=== PATIENT | female | born 1930 | race Caucasian/White ===

== ENCOUNTER 2016-11-04 12:20 | Emergency (ER) | payer OTHER ==
[~2016-11-04] VITALS: Ht 160 cm; Wt 90.0 kg
[~2016-11-04 12:20] MED LIST: ATEN-102 PO; ATOR20TA PO; CARD120C4 PO; COUM2TAB PO; COUM3TAB PO; DOCU100T9 PO
[2016-11-04 12:35] VITALS: BP 198/86; PULSE 87; RESP 20; TEMP 97.9; O2SAT 99
--- NOTE | 2016-11-04 14:46 | RADRPT ---
EXAM DATE/TIME: 11/04/2016 14:49 [facility] COMPARISON: No previous studies available for comparison. INDICATIONS : Fall. Left elbow pain. MEDICAL HISTORY : None. SURGICAL HISTORY : None. ENCOUNTER: Initial ACUITY: 1 day PAIN SCORE: 8/10 LOCATION: Left posterior elbow FINDINGS: Multiple view examination of the left elbow demonstrates no soft tissue swelling, joint effusion, or fracture. The osseous structures are in normal alignment. Bony mineralization is normal. CONCLUSION: Unremarkable examination of the left elbow. Multiple bony excrescences from both the lateral and med ial epicondylar regions a sign of chronic tendinopathy. Charly Gonzalez MD on November 04, 2016 at 14:43 Board Certified Radiologist. This report was verified electronically.
[2016-11-04 15:00] VITALS: BP 172/88; PULSE 80; RESP 20; O2SAT 98
[2016-11-04] MEDS ORDERED: ACETAMINOPHEN 325 MG TAB PO ONE (15:00)
--- NOTE | 2016-11-04 15:20 | RADRPT ---
EXAM DATE/TIME: 11/04/2016 15:06 [facility] COMPARISON: No previous studies available for comparison. INDICATIONS : Fall off seated walker with head trauma. RADIATION DOSE: 33.44 CTDIvol (mGy) MEDICAL HISTORY : Cardiovascular disease. Cerebrovascular disease. Hypertension. SURGICAL HISTORY : Appendectomy. Hysterectomy. ENCOUNTER: Initial ACUITY: 1 day PAIN SCALE: 5/10 LOCATION: cranial TECHNIQUE: Multiple contiguous axial images were obtained of the head. Using automated exposure control and adj ustment of the mA and/or kV according to patient size, radiation dose was kept as low as reasonably a chievable to obtain optimal diagnostic quality images. FINDINGS: There is marked central and cortical atrophy with dilatation of ventricular and sulcal spaces. There is no parenchymal hemorrhage, acute infarction or mass lesion identified. There are no extra-axial fluid collections appreciated. The posterior fossa is unremarkable with midline fourth ventricle. T he portion of the orbits and paranasal sinuses visualized are unremarkable. CONCLUSION: Cerebral atrophy. No acute intracranial abnormality. Varun Oro MD on November 04, 2016 at 15:18 Board Certified Radiologist. This report was verified electronically.
--- NOTE | 2016-11-04 15:32 | RADRPT ---
EXAM DATE/TIME: 11/04/2016 15:06 [facility] COMPARISON: No previous studies available for comparison. INDICATIONS : Fall off seated walker with head trauma. RADIATION DOSE: 17.80 CTDIvol (mGy) MEDICAL HISTORY : Cardiovascular disease. Cerebrovascular disease. Hypertension. SURGICAL HISTORY : None. ENCOUNTER: Initial ACUITY: 1 day PAIN SCALE: 6/10 LOCATION: neck TECHNIQUE: Volumetric scanning of the cervical spine was performed. Multiplanar reconstructions in the sagittal, coronal and oblique axial planes were performed. Using automated exposure control and adjustment o f the mA and/or kV according to patient size, radiation dose was kept as low as reasonably achievable to obtain optimal diagnostic quality images. FINDINGS: Sagittal and coronal reformats demonstrate 7 cervical type vertebral bodies. The alignment is adequat e. There are degenerated discs throughout the cervical spine. There are degenerative changes in the a tlantodens joint. No acute cervical spine fracture is seen. C2/3: There is moderate facet arthritis on the right. There is mild facet arthritis on the left. The thecal space and neural foramina are adequate. C3/4: There is advanced facet arthritis on the left. There is moderate bony foraminal narrowing on the left . The residual thecal space is adequate. The foramina on the right is adequate. C4-5: There is a degenerated disc with diffuse osteophytic ridging from the vertebral endplates. This resul ts in moderate narrowing of the thecal sac. There is moderate facet arthritis bilaterally. There is o steophytic spur which projects into the lateral recess on the right. There is mild bony foraminal alvin rowing bilaterally. C5-6: There is a degenerated disc. There is mild osteophytic ridging from the vertebral endplates. This eff aces the ventral thecal sac. The foramina appear adequate. There is mild facet arthritis bilaterally. C6-7: The thecal space and foramina are adequate. No significant abnormality identified. C7-T1: There is moderate facet arthritis bilaterally. CONCLUSION: 1. No acute fracture identified. 2. Degenerative changes throughout the cervical spine. The most significant abnormality is a large os teophyte projecting off the posterior endplates across the C4/5 disc level. This effaces the ventral thecal sac and abuts the ventral aspect of the cord. Eren Britt MD on November 04, 2016 at 15:28 Board Certified Radiologist. This report was verified electronically.
--- NOTE | 2016-11-04 16:11 | PD ---
HPI Chief Complaint: Fall Time Seen by Provider: 16:04 Travel History International Travel<30 days: No Contact w/Intl Traveler<30days: No Traveled to known affect area: No History of Present Illness HPI 86-year-old female that presents to the ED for evaluation of trip and fall today. Per patient her was pushing her on a wheeled walker as she has difficulty ambulating secondary to previous surgeries to his legs and apparently when they were going up the incline he lost his balance and patient fell backwards into her head. She did not pass out but she does take blood thinners. She states having some pain on the back of the head as well as the left elbow. She does have an abrasion the left elbow. Patient takes Coumadin secondary to atrial fibrillation. She denies any back or neck pain. Per patient most the pains in the back of the head. She did not lose consciousness. No blurry vision or double vision. Nothing makes the pain better or worse. Per patient the discomfort 7 out of 10. Per patient she feels achy on her legs but that's been chronic secondary to swelling from previous knee surgery. She hasn't allergy to Haldol and morphine. She states that she is up-to-date with her vaccinations. No other medical problems reported today. PFSH Past Medical History Hx Anticoagulant Therapy: Yes Arthritis: Yes (RA) Asthma: No Atrial Fibrillation: Yes Autoimmune Disease: Yes (RA) Cancer: No Cardiovascular Problems: Yes (AFIB) High Cholesterol: Yes Chest Pain: No COPD: No Diabetes: No Diminished Hearing: Yes Endocrine: No GERD: No Genitourinary: No Headaches: Yes (RARELY) Hiatal Hernia: No Hypertension: Yes Kidney Stones: No Musculoskeletal: Yes (uses a walker ) Psychiatric: No Reproductive: No Respiratory: No Sleep Apnea: No Thyroid Disease: No Ulcer: No Tetanus Vaccination: < 5 Years : 6 Para: 6 Miscarriage: 1 Tubal Ligation: Yes Past Surgical History Appendectomy: Yes Hysterectomy: Yes Tonsillectomy: Yes Other Surgery: Yes (HEMORRHOIDECTOMY / POLYP REMOVAL) Social History Alcohol Use: Yes (WEEKLY WITH DINNER WINE) Tobacco Use: No Substance Use: No Allergies-Medications (Allergen,Severity, Reaction): Coded Allergies: Haldol (Verified Allergy, Intermediate, 01/29/16) family said she had an adverse reaction to haldol Morphine (Verified Adverse Reaction, Mild, 01/29/16) Reported Meds & Prescriptions Reported Meds & Active Scripts Active Reported Coumadin 3 mg (Warfarin Sodium) Warfarin Sodium 3 mg Tab 3 Mg PO MOWEFR@16 Coumadin 2 mg (Warfarin Sodium) Warfarin Sodium 2 mg Tab 2 Mg PO SUTUTHSA@16 Docusate Sodium 100 Mg Cap 100 Mg PO BID PRN Atorvastatin 20 mg tab (Atorvastatin Calcium) 20 Mg Tab 20 Mg PO HS Cardizem CD 120 mg (Diltiazem CD 120 mg) 120MG/24 Cap 120 Mg PO DAILY Atenolol 50 Mg Tab 50 Mg PO DAILY Review of Systems General / Constitutional: No: Fever, Chills, Weight Gain, Weight Loss, Other Eyes: No: Diploplia, Blurred Vision, Photophobia, Drainage, Redness, Foreign Body Sensation, Pain, Tearing, Blind Spots, Visual changes, Blindness, Other HENT: Positive: Headaches, No: Vertigo, Lightheadedness, Sore Throat, Rhinitis , Rhinorrhea, Congestion, Nosebleed, Neck Stiffness, Neck Pain, Masses, Gingival Bleeding, Dental Difficulties, Ear Discharge, Earache, Other Cardiovascular: No: Chest Pain or Discomfort, Palpitations, Irregular Rhythm, Tachycardia, Diaphoresis, Syncope, Dyspnea on exertion, Varicosities, Edema, Cyanosis, Varicosities, Phlebitis, Claudication, Other Respiratory: No: Cough, Shortness of Breath, Wheezing, Sneezing, Orthopnea, Hemoptysis, Stridor, Night Sweats, Pleuritic Pain, Other Gastrointestinal: No: Nausea, Vomiting, Diarrhea, Abdominal Pain, Hematemesis, Hematochezia, Constipation, Changes in Bowel Habits, Indigestion, Dysphagia, Loss of Appetite, Other Genitourinary: No: Urgency, Frequency, Dysuria, Nocturia, Hematuria, Decreased Urinary Output, Oliguria, Hesitancy, Dribbling, Incontinence, Pelvic Pain, Flank Pain, Dyspareunia, Discharge, Dysmenorrhea, Menorrhagia, Metorrhagia, Vaginal Bleeding, Other Musculoskeletal: Positive: Pain, No: Myalgias, Arthralgias, Limited ROM, Weakness, Cramping, Edema, Atrophy, Other Skin: Positive Lesions, No Rash, No Itching, No Dryness, No Lumps, No Hives, No Change in Pigmentation, No Change in nails, No Alopecia, No Breast Lumps, No Breast Tenderness, No Breast Swelling, No Other Neurologic: No: Weakness, Dizziness, Syncope, Focal Abnormalities, Coordination Problem, Tremor, Ataxia, Headache, Change in Mentation, Slurred Speech, Paresthesia, Incontinence, Seizures, Sensory Disturbance, Other Psychiatric: No: Anxiety, Depression, Suicidal Ideations, Disorder of Thought, Mood Disorder, Substance Abuse, Homicidal Ideation, Other Endocrine: No: Heat Intolerance, Cold Intolerance, Polyuria, Polydipsia, Other Hematologic/Lymphatic: No: Easy Bruising, Lymph Node Enlargement, Other Physical Exam Narrative GENERAL: SKIN: Warm and dry. HEAD: Atraumatic. Normocephalic. EYES: Pupils equal and round 4 mm reactive to light and accommodation. No scleral icterus. No injection or drainage. ENT: No nasal bleeding or discharge. Mucous membranes pink and moist. Tongue is midline. No uvula deviation. NECK: Trachea midline. No JVD. CARDIOVASCULAR: Regular rate and rhythm. No murmurs, S3, S4. RESPIRATORY: No accessory muscle use. Clear to auscultation. Breath sounds equal bilaterally. GASTROINTESTINAL: Abdomen soft, non-tender, nondistended. Hepatic and splenic margins not palpable. MUSCULOSKELETAL: Extremities without clubbing, cyanosis, or edema. No obvious deformities. Full range of motion of the upper and lower extremities bilaterally. No lumbar, thoracic, cervical spine tenderness to palpation. Patient was seen with cervical collar in place. Patient does have full range of motion of the left elbow with minimal discomfort. Patient has abrasions to the posterior aspect of the elbow. NEUROLOGICAL: Awake and alert. No obvious cranial nerve deficits. Motor grossly within normal limits. Five out of 5 muscle strength in the arms and legs. Normal speech. PSYCHIATRIC: Appropriate mood and affect; insight and judgment normal. Data Data Last Documented VS Vital Signs Date Time Temp Pulse Resp B/P Pulse Ox O2 Delivery O2 Flow Rate FiO2 11/04/16 12:35 97.9 87 20 198/[address] Brain W/O Iv Contrast(Rout) (11/04/16 13:57) Ct Cerv Spine W/O Contrast (11/04/16 13:57) Elbow, Complete (4 Vws) (11/04/16 13:57) Ice/Cold Pack (11/04/16 13:57) Acetaminophen (Tylenol) (11/04/16 15:00) MDM Medical Decision Making Medical Screen Exam Complete: Yes Emergency Medical Condition: Yes Medical Record Reviewed: Yes Interpretation(s) Last Impressions Head CT 11/04/161356 Signed Impressions: Service Date/Time: November 15:06 - CONCLUSION: Cerebral atrophy. No acute intracranial abnormality. Varun Oro MD Elbow X-Ray 11/04/161356 Signed Impressions: Service Date/Time: November 14:49 - CONCLUSION: Unremarkable examination of the left elbow. Multiple bony excrescences from both the lateral and medial epicondylar regions a sign of chronic tendinopathy. Charly Gonzalez MD Cervical Spine CT 11/04/161356 Signed Impressions: Service Date/Time: November 15:06 - CONCLUSION: 1. No acute fracture identified. 2. Degenerative changes throughout the cervical spine. The most significant abnormality is a large osteophyte projecting off the posterior endplates across the C4/5 disc level. This effaces the ventral thecal sac and abuts the ventral aspect of the cord. Eren Britt MD Differential Diagnosis Fall versus head injury versus bleed versus fracture versus abrasion Narrative Course 86-year-old female that presents to the ED for evaluation of fall. Patient was properly examined and was found to have signs and symptoms consistent with fall. Concern for head bleed as patient does take blood thinners although she is neurovascular intact at this time. CT of the head and neck were done. CT of the head and neck were negative. Cervical collar was removed by me. X-ray of the elbow was done to rule out bony injury although less likely. X-ray was negative for this other than for some chronic changes. Patient was reassured. Recommendation is for Tylenol for pain. Follow up closely with PCP. Ice or warm compresses to areas of pain. See ED for any worsening symptoms. Patient agrees with plan. Diagnosis Primary Impression: Head injury, acute Qualified Code: S09.90XA - Head injury, acute, initial encounter Additional Impressions: Abrasion Contusion Qualified Code: S00.83XA - Contusion of other part of head, initial encounter Patient Instructions: General Instructions Additional Instructions: Wash wounds with soap and water. Antibiotic ointment. Ice to the area of pain. Follow with PCP. See ED for worsening symptoms. Med/Other Pt SpecificInfo: No Change to Meds Disposition: 01 DISCHARGE HOME Condition: Stable Bereket Holden Nov 04, 2016 16:11
[2016-11-04 16:25] VITALS: BP 169/87
== END 2016-11-04 17:19 | disposition home or self-care (01) ==
LOC: NEDAMB 12:20
DX: S09.90XA Unspecified injury of head, initial encounter (principal); S00.83XA Contusion of other part of head, initial encounter; S50.312A Abrasion of left elbow, initial encounter; W03.XXXA Other fall on same level due to collision with another person, initial encounter
CPT/HCPCS: 70450; 72125; 73080

== ENCOUNTER 2017-05-28 19:51 | Observation (INO) | payer OTHER ==
[~2017-05-28] VITALS: Ht 165.1 cm; Wt 88.0 kg
[2017-05-28 19:59] VITALS: BP 212/98; PULSE 120; RESP 18; TEMP 97.9; O2SAT 95
[2017-05-28] MEDS ORDERED: ATOR20TA15 PO (20:09)
[2017-05-28] MEDS ORDERED: DILT120T PO (20:09)
[2017-05-28] MEDS ORDERED: COUM2.5T PO (20:09)
[2017-05-28] MEDS ORDERED: COUM2TAB PO (20:09)
[2017-05-28] MEDS ORDERED: COLA100C (20:09)
[2017-05-28] MEDS ORDERED: ATEN50TA PO (20:09)
[2017-05-28] MEDS ORDERED: SODIUM CHLORIDE 0.9% FLUSH 10 ML FLUSH IVF PRN (20:30)
[2017-05-28] MEDS ORDERED: FUROSEMIDE 40 MG/4 ML VIAL IVP ONE (20:30)
--- NOTE | 2017-05-28 21:06 | RADRPT ---
EXAM DATE/TIME: 05/28/2017 20:32 [facility] COMPARISON: CHEST PA & LAT, November 29, 2015, 13:56. INDICATIONS : Short of breath. MEDICAL HISTORY : Rheumatoid arthritis. Hypertension Congestive heart failure. Atrial fibrilation. SURGICAL HISTORY : None. ENCOUNTER: Initial ACUITY: 1 day PAIN SCORE: 6/10 LOCATION: Left chest FINDINGS: A single view of the chest demonstrates the lungs to be symmetrically aerated without evidence of mas s, infiltrate or effusion. The cardiomediastinal contours are unremarkable. There are atherosclerot ic calcifications in the aorta. There Osseous structures are intact. CONCLUSION: No acute disease. Jordan Jarrett MD on May 28, 2017 at 21:03 Board Certified Radiologist. This report was verified electronically.
--- NOTE | 2017-05-28 21:17 | PD ---
HPI Chief Complaint: Chest Pain Time Seen by Provider: 20:06 Travel History International Travel<30 days: No Contact w/Intl Traveler<30days: No Traveled to known affect area: No History of Present Illness HPI This is an 86 year-old woman who presents to the emergency department complaining of chest pain and labored breathing starting since this morning. She's had more chest pain recently. She is a history of A. fib, she is on warfarin apparently. She is not sure of any of her medications. She states she is on a water pill but there is no record of it. She thinks she may have heart failure but it is not in her previous records either. She sees Dr. Lamine Bellamy, and follows with Dr. Goodwin. History Past Medical History Narrative Medical According to records: Arthritis A. fib, on warfarin Hypertension Dyslipidemia Patient reports possible history of CHF : 6 Para: 6 Social History Alcohol Use: Yes (WEEKLY WITH DINNER WINE) Tobacco Use: No Allergies-Medications (Allergen,Severity, Reaction): Coded Allergies: haloperidol (Unverified Allergy, Intermediate, 04/19/17) family said she had an adverse reaction to haldol morphine (Unverified Adverse Reaction, Mild, 04/19/17) Reported Meds & Prescriptions Reported Meds & Active Scripts Active Reported Coumadin (Warfarin) 2 Mg Tab 2 Mg PO WEEKLY Coumadin (Warfarin) 2.5 Mg Tab 2.5 Mg PO WEEKLY Colace (Docusate Sodium) 100 Mg Capsule Atorvastatin (Atorvastatin Calcium) 20 Mg Tab 20 Mg PO HS Atenolol 50 Mg Tab 50 Mg PO DAILY Diltiazem (Diltiazem HCl) 120 Mg Tab 120 Mg PO DAILY Review of Systems Except as stated in HPI: all other systems reviewed are Neg Physical Exam Narrative GENERAL: Anxious 86 year-old woman, no acute distress. SKIN: Focused skin assessment warm/dry. HEAD: Atraumatic. Normocephalic. EYES: Pupils equal and round. No scleral icterus. No injection or drainage. ENT: No nasal bleeding or discharge. Mucous membranes pink and moist. NECK: Trachea midline. No JVD. CARDIOVASCULAR: Regular rate and rhythm. No murmur appreciated. RESPIRATORY: Nonlabored. Rales in both bases with coarse rhonchorous breath sounds. Clear in the apices. GASTROINTESTINAL: Abdomen soft, non-tender, nondistended. Hepatic and splenic margins not palpable. MUSCULOSKELETAL: No obvious deformities. Minimal edema. NEUROLOGICAL: Awake and alert. No obvious cranial nerve deficits. Motor grossly within normal limits. Normal speech. PSYCHIATRIC: Slightly anxious. Data Data Last Documented VS Vital Signs Date Time Temp Pulse Resp B/P (MAP) Pulse Ox O2 Delivery O2 Flow Rate FiO2 05/28/17 20:03 107 05/28/17 19:59 97.9 18 212/98 (136) 95 Orders Orders Complete Blood Count With Diff (05/28/17 20:18) Comprehensive Metabolic Panel (05/28/17 20:18) B-Type Natriuretic Peptide (05/28/17 20:18) Act Partial Throm Time (Ptt) (05/28/17 20:18) Prothrombin Time / Inr (Pt) (05/28/17 20:18) Magnesium (Mg) (05/28/17 20:18) Troponin I (05/28/17 20:18) Iv Access Insert/Monitor (05/28/17 20:18) Electrocardiogram (05/28/17 20:18) Ecg Monitoring (05/28/17 20:18) Oximetry (05/28/17 20:18) Oxygen Administration (05/28/17 20:18) Chest, Single Ap (05/28/17 20:18) Sodium Chloride 0.9% Flush (Ns Flush) (05/28/17 20:30) Furosemide Inj (Lasix Inj) (05/28/17 20:30) Diltiazem Inj (Cardizem Inj) (05/28/17 21:30) Labs Laboratory Tests Test 05/28/17 20:30 White Blood Count 5.7 TH/MM3 Red Blood Count 4.10 MIL/MM3 Hemoglobin 11.2 GM/DL Hematocrit 34.8 % Mean Corpuscular Volume 84.9 FL Mean Corpuscular Hemoglobin 27.3 PG Mean Corpuscular Hemoglobin Concent 32.2 % Red Cell Distribution Width 16.7 % Platelet Count 182 TH/MM3 Mean Platelet Volume 8.6 FL Neutrophils (%) (Auto) 73.0 % Lymphocytes (%) (Auto) 12.0 % Monocytes (%) (Auto) 8.5 % Eosinophils (%) (Auto) 6.0 % Basophils (%) (Auto) 0.5 % Neutrophils # (Auto) 4.2 TH/MM3 Lymphocytes # (Auto) 0.7 TH/MM3 Monocytes # (Auto) 0.5 TH/MM3 Eosinophils # (Auto) 0.3 TH/MM3 Basophils # (Auto) 0.0 TH/MM3 CBC Comment DIFF FINAL Differential Comment Prothrombin Time 33.5 SEC Prothromb Time International Ratio 2.9 RATIO Activated Partial Thromboplast Time 36.7 SEC Blood Urea Nitrogen 13 MG/DL Creatinine 1.30 MG/DL Random Glucose 89 MG/DL Total Protein 7.5 GM/DL Albumin 3.7 GM/DL Calcium Level 9.3 MG/DL Magnesium Level 1.7 MG/DL Alkaline Phosphatase 69 U/L Aspartate Amino Transf (AST/SGOT) 30 U/L Alanine Aminotransferase (ALT/SGPT) 18 U/L Total Bilirubin 1.0 MG/DL Sodium Level 130 MEQ/L Potassium Level 4.8 MEQ/L Chloride Level 98 MEQ/L Carbon Dioxide Level 22.4 MEQ/L Anion Gap 10 MEQ/L Estimat Glomerular Filtration Rate 39 ML/MIN Troponin I LESS THAN 0.02 NG/ML B-Type Natriuretic Peptide 185 PG/ML MDM Medical Decision Making Medical Screen Exam Complete: Yes Emergency Medical Condition: Yes Interpretation(s) My review of EKG: A. fib with RVR rate of 12, occasional PVCs, normal axis, no definite evidence of acute ischemia. LABS: CBC unremarkable. CMP unremarkable Troponin negative BNP 185 Coags INR 2.9 Chest x-ray: No acute disease. Differential Diagnosis CHF exacerbation, pneumonia or bronchitis, ACS, PE, lung disease, other Narrative Course She appears to be on calcium channel blockers. She states she's taken her medications. Heart rates a little bit elevated. We'll give her small dose of diltiazem and reassess. Medical decision making INITIAL: Is an 86-year-old presents with some chest pressure and labored breathing. Chest pains completely gone at this point. She does have a little bit of labored breathing per report. She has what sounds like fluid in her lungs. Some clear she has CHF or not. We'll check labs, x-ray, reassess. Heart rate a little bit elevated. She appears very calcium channel blockers. We'll give her small dose of diltiazem and reassess. FINAL: No clear evidence of CHF exacerbation. She looks well. Heart rate control. We'll plan on admission for observation and serial cardiac enzymes. Diagnosis Primary Impression: Shortness of breath Additional Impression: Chest pain Admitting Information Admitting Physician Requests: Observation Charly Castellon MD May 28, 2017 21:17
[2017-05-28] MEDS ORDERED: DILTIAZEM HCL 25 MG/5 ML VIAL IV ONE (21:30)
[2017-05-28 21:37] LABS: AUTOMATED NEUTROPHIL # 4.2 TH/MM3 (1.8-7.7); BASOPHIL % 0.5 % (0.0-2.0); EOSINOPHIL # 0.3 TH/MM3 (0-0.4); HEMATOCRIT 34.8 % (35.0-46.0); HEMO FLAGS DIFF FINAL; LYMPHOCYTE # 0.7 TH/MM3 (1.0-4.8); MEAN CELL VOLUME 84.9 FL (80.0-100.0); MEAN CORPUSCULAR HEMOGLOBIN 27.3 PG (27.0-34.0); MEAN CORPUSCULAR HGB CONC 32.2 % (32.0-36.0); MONO % 8.5 % (0.0-8.0); PLATELET COUNT 182 TH/MM3 (150-450); RED CELL DISTRIBUTION WIDTH 16.7 % (11.6-17.2); WHITE BLOOD COUNT 5.7 TH/MM3 (4.0-11.0)
[2017-05-28 21:45] LABS: APTT (PATIENT) 36.7 SEC (24.3-30.1); INTERNATIONAL NORMALIZED RATIO 2.9 RATIO; PROTHROMBIN TIME - PATIENT 33.5 SEC (9.8-11.6)
[2017-05-28 21:48] LABS: ALT (GPT) 18 U/L (10-53)
[2017-05-28 21:52] LABS: ALKALINE PHOSPHATASE 69 U/L (45-117)
[2017-05-28 21:58] LABS: ANION GAP 10 MEQ/L (5-15); AST (GOT) 30 U/L (15-37); BICARBONATE 22.4 MEQ/L (21.0-32.0); BLOOD UREA NITROGEN 13 MG/DL (7-18); CHLORIDE 98 MEQ/L (98-107); GLOMERULAR FILTRATION RATE 39 ML/MIN (>89); MAGNESIUM 1.7 MG/DL (1.5-2.5); POTASSIUM 4.8 MEQ/L (3.5-5.1); SODIUM (NA) 130 MEQ/L (136-145)
--- NOTE | 2017-05-28 22:39 | HHI.HP ---
[facility] Chan Bellamy MD Admission Diagnosis Chest Pain, SOB Diagnoses: (1) Chest pain Diagnosis: Principal (2) A-fib Diagnosis: Principal (3) Renal insufficiency Diagnosis: Principal Travel History International Travel<30 Days: No Contact w/Intl Traveler <30 Da: No Traveled to Known Affected Are: No History of Present Illness This is an 86-year-old female with a PMH of HTN, Hyperlipidemia, Rheumatoid Arthritis and A. fib on Coumadin who presented to the ER with complaints of chest pain and SOB starting earlier today. Denies fever, chills or cough. On arrival, BP 198/86, HR 87, O2 sat 99% on RA, Afebrile. CBC essentially unremarkable. Creatinine 1.30, producing 1.22 on 01/29/16. Troponin negative. BNP 185. INR 2.9. CXR with no acute findings. While in ER, patient with episode of A. fib w/ HR 110's, s/p Cardizem x1 w/ improvement. HR now 90's. On exam, noted to have some fluid overload, s/p Lasix in ER. No c/o chest pain at this time. Review of Systems Except as stated in HPI: all other systems reviewed are Neg ROS: 14 point review of systems otherwise negative. Past Family Social History Past Medical History PMH: HTN, Hyperlipidemia, Rheumatoid Arthritis and A. fib on Coumadin Past Surgical History PAST SURGICAL HISTORY: Tonsillectomy, Appendectomy, Hysterectomy, Right Knee Replacement Allergies: Coded Allergies: haloperidol (Unverified Allergy, Intermediate, 04/19/17) family said she had an adverse reaction to haldol morphine (Unverified Adverse Reaction, Mild, 04/19/17) Family History PAST FAMILY HISTORY: Reviewed. No h/o DM or CAD Social History PAST SOCIAL HISTORY: Negative for alcohol, tobacco or drugs. Physical Exam Vital Signs Vital Signs Date Time Temp Pulse Resp B/P (MAP) Pulse Ox O2 Delivery O2 Flow Rate FiO2 05/28/17 20:03 107 05/28/17 19:59 97.9 120 18 212/98 (136) 95 Physical Exam PE: GENERAL: Very pleasant elderly white female in no acute distress. HEENT: PERRLA, EOMI. No scleral icterus or conjunctival pallor. No lid lag or facial droop. CARDIOVASCULAR: Regular rate and rhythm. No obvious murmurs to auscultation. No chest tenderness to palpation. RESPIRATORY: No obvious rhonchi or wheezing. Clear to auscultation. Breath sounds equal bilaterally. GASTROINTESTINAL: Abdomen soft, non-tender, nondistended. BS normal. MUSCULOSKELETAL: Extremities without clubbing, cyanosis. +1 edema. No obvious deformities. NEUROLOGICAL: Awake, alert and oriented x4. No focal neurologic deficits. Moving both upper and lower extremities spontaneously. Laboratory Laboratory Tests Test 05/28/17 20:30 White Blood Count 5.7 Red Blood Count 4.10 Hemoglobin 11.2 Hematocrit 34.8 Mean Corpuscular Volume 84.9 Mean Corpuscular Hemoglobin 27.3 Mean Corpuscular Hemoglobin Concent 32.2 Red Cell Distribution Width 16.7 Platelet Count 182 Mean Platelet Volume 8.6 Neutrophils (%) (Auto) 73.0 Lymphocytes (%) (Auto) 12.0 Monocytes (%) (Auto) 8.5 Eosinophils (%) (Auto) 6.0 Basophils (%) (Auto) 0.5 Neutrophils # (Auto) 4.2 Lymphocytes # (Auto) 0.7 Monocytes # (Auto) 0.5 Eosinophils # (Auto) 0.3 Basophils # (Auto) 0.0 CBC Comment DIFF FINAL Differential Comment Prothrombin Time 33.5 Prothromb Time International Ratio 2.9 Activated Partial Thromboplast Time 36.7 Blood Urea Nitrogen 13 Creatinine 1.30 Random Glucose 89 Total Protein 7.5 Albumin 3.7 Calcium Level 9.3 Magnesium Level 1.7 Alkaline Phosphatase 69 Aspartate Amino Transf (AST/SGOT) 30 Alanine Aminotransferase (ALT/SGPT) 18 Total Bilirubin 1.0 Sodium Level 130 Potassium Level 4.8 Chloride Level 98 Carbon Dioxide Level 22.4 Anion Gap 10 Estimat Glomerular Filtration Rate 39 Troponin I LESS THAN 0.02 B-Type Natriuretic Peptide 185 Result Diagram: 05/28/17202905/28/172029 Caprini VTE Risk Assessment Caprini VTE Risk Assessment: Mod/High Risk (score >= 2) Caprini Risk Assessment Model Point Value = 1 Point Value = 2 Point Value = 3 Point Value = 5 Age 41-60 Minor surgery BMI > 25 kg/m2 Swollen legs Varicose veins or History of unexplained or recurrent spontaneous Oral contraceptives or hormone replacement Sepsis (< 1 month) Serious lung disease, including pneumonia (< 1 month) Abnormal pulmonary function Acute myocardial infarction Congestive heart failure (< 1 month) History of inflammatory bowel disease Medical patient at bed rest Age 61-74 Arthroscopic surgery Major open surgery (> 45 min) Laparoscopic surgery (> 45 min) Malignancy Confined to bed (> 72 hours) Immobilizing plaster cast Central venous access Age >= 75 History of VTE Family history of VTE Factor V Leiden Prothrombin [id number] Lupus anticoagulant Anticardiolipin antibodies Elevated serum homocysteine Heparin-induced thrombocytopenia Other congenital or acquired thrombophilia Stroke (< 1 month) Elective arthroplasty Hip, pelvis, or leg fracture Acute spinal cord injury (< 1 month) Prophylaxis Regimen Total Risk Factor Score Risk Level Prophylaxis Regimen 0-1 Low Early ambulation 2 Moderate Order ONE of the following: *Sequential Compression Device (SCD) *Heparin 5000 units SQ BID 3-4 Higher Order ONE of the following medications: *Heparin 5000 units SQ TID *Enoxaparin/Lovenox 40 mg SQ daily (WT < 150 kg, CrCl > 30 mL/min) *Enoxaparin/Lovenox 30 mg SQ daily (WT < 150 kg, CrCl > 10-29 mL/min) *Enoxaparin/Lovenox 30 mg SQ BID (WT < 150 kg, CrCl > 30 mL/min) AND/OR *Sequential Compression Device (SCD) 5 or more Highest Order ONE of the following medications: *Heparin 5000 units SQ TID (Preferred with Epidurals) *Enoxaparin/Lovenox 40 mg SQ daily (WT < 150 kg, CrCl > 30 mL/min) *Enoxaparin/Lovenox 30 mg SQ daily (WT < 150 kg, CrCl > 10-29 mL/min) *Enoxaparin/Lovenox 30 mg SQ BID (WT < 150 kg, CrCl > 30 mL/min) AND *Sequential Compression Device (SCD) Assessment and Plan Problem List: (1) Chest pain ICD Code: R07.9 - Chest pain, unspecified Status: Acute (2) A-fib ICD Code: I48.91 - Unspecified atrial fibrillation (3) Renal insufficiency ICD Code: N28.9 - Disorder of kidney and ureter, unspecified Assessment and Plan A/P: 1. Chest Pain: acute onset of chest pain and SOB, now resolved. Trop negative , EKG w/ no acute ischemia. Admit for Observation, telemetry, check serial cardiac enzymes. NTG/Morphine prn as needed. Resume home B-cj, Statin. Follows w/ Dr. Goodwin as outpatient, consult as needed. 2. A-fib: Chronic. Episode of A-fib w/ HR 110's while in ER, s/p Cardizem IV x1 dose, now w/ rate-controlled. Resume home medications. 3. Renal Insufficiency: Acute on Chronic. Creatinine 1.30, previously 1.22 on 01/29/16. Repeat labs in am, monitor I/O. 4. DVT Prophylaxis: On Coumadin, INR therapeutic. 5. Social work for d/c planning as needed. 6. Case discussed w/ ER physician at length Kristen Jackson MD May 28, 2017 22:39
[2017-05-28] MEDS ORDERED: ONDANSETRON HCL 4 MG/2 ML VIAL IVP PRN (22:45)
[2017-05-28] MEDS ORDERED: MAGNESIUM HYDROXIDE SUSP 30 ML CUP PO PRN (22:45)
[2017-05-28] MEDS ORDERED: ACETAMINOPHEN/HYDROcodone 325 MG/5 MG TAB PO PRN (22:45)
[2017-05-28] MEDS ORDERED: SODIUM CHLORIDE 0.9% FLUSH 10 ML FLUSH IV FLUSH PRN (22:45)
[2017-05-28] MEDS ORDERED: SENNOSIDES 8.6 MG TAB PO PRN (22:45)
[2017-05-28] MEDS ORDERED: MORPHINE SULFATE 4 MG/ML INJ IV PUSH PRN (22:45)
[2017-05-28] MEDS ORDERED: ACETAMINOPHEN 325 MG TAB PO PRN (22:45)
[2017-05-28] MEDS ORDERED: BISACODYL 10 MG SUPP RECTAL PRN (22:45)
[2017-05-28] MEDS ORDERED: LACTULOSE SYRUP 20 GM/30 ML CUP PO PRN (22:45)
[2017-05-28 23:32] VITALS: BP 136/80; PULSE 87; RESP 18; O2SAT 99
[2017-05-29] VITALS (13 sets, daily range): BP systolic 126–171; BP diastolic 67–89; PULSE 54–109; RESP 17–18; TEMP 97.6–98.5; O2SAT 96–100
[2017-05-29] MEDS: SODIUM CHLORIDE 0.9% FLUSH 10 ML FLUSH IV FLUSH SCH ×2 (08:11→21:00)
[2017-05-29] MEDS: DOCUSATE SODIUM 50 MG/SENNA 8.6 MG TAB PO SCH ×2 (08:13→21:00)
[2017-05-29] MEDS: ATENOLOL 50 MG TAB PO SCH (08:13)
[2017-05-29] MEDS ORDERED: DILTIAZEM-CD 120 MG CAP ER PO SCH (09:00)
--- NOTE | 2017-05-29 10:12 | HHI.PR ---
Subjective Remarks Follow up chest pain. Patient states that she feels better today. Still gets short of breath, but chest pain has resolved. Wants to go home. Objective Vitals Vital Signs Date Time Temp Pulse Resp B/P (MAP) Pulse Ox O2 Delivery O2 Flow Rate FiO2 05/29/17 09:35 109 05/29/17 08:47 98.1 107 17 136/67 (90) 97 05/29/17 03:57 90 05/29/17 03:28 98.2 88 18 135/71 (92) 98 05/29/17 01:20 93 05/29/17 01:00 98.0 91 18 171/74 (106) 96 05/29/17 00:53 05/29/17 00:20 89 18 133/89 (104) 99 Room Air 05/28/17 23:32 87 18 136/80 (98) 99 Room Air 05/28/17 20:03 107 05/28/17 19:59 97.9 120 18 212/98 (136) 95 I/O 05/28/17 05/28/17 05/28/17 05/29/17 05/29/17 05/29/17 07:00 15:00 23:00 07:00 15:00 23:00 Output Total 200 ml 900 ml Balance -200 ml -900 ml Output Urine Total 200 ml 900 ml # Voids 1 Result Diagram: 05/28/17202905/28/172029 Imaging Last Impressions Chest X-Ray 05/28/172017 Signed Impressions: Service Date/Time: Sunday, May 28, 2017 20:32 - CONCLUSION: No acute disease. Jordan Jarrett MD Objective Remarks General: Elderly female in no acute distress. Heart: Regular rate and rhythm. No murmur. Lungs: Clear to auscultation bilaterally. No wheezes, rales, or rhonchi. Breathing is nonlabored. Abdomen: Soft, nontender, nondistended. Extremities: No lower extremity edema. Psych: Alert and oriented. Procedures None Urinary Catheter: No Vascular Central Line Catheter: No A/P Problem List: (1) Chest pain ICD Code: R07.9 - Chest pain, unspecified Status: Acute (2) A-fib ICD Code: I48.91 - Unspecified atrial fibrillation (3) Renal insufficiency ICD Code: N28.9 - Disorder of kidney and ureter, unspecified Assessment and Plan 1. Chest pain: Resolved. First 2 sets of cardiac enzymes are negative. Third set of enzymes is pending. If that is negative, will check with patient's office spec regarding need for stress test. 2. Atrial fibrillation: Chronic. Rate controlled following one dose of IV Cardizem. Continue Coumadin. 3. Acute on chronic renal insufficiency: Creatinine slightly elevated above baseline. Repeat labs are pending. 4. DVT prophylaxis: Coumadin. INR is therapeutic. Zion Smith MD May 29, 2017 10:12
[2017-05-29 12:40] LABS: AUTOMATED NEUTROPHIL # 4.2 TH/MM3 (1.8-7.7); BASOPHIL % 0.4 % (0.0-2.0); EOSINOPHIL # 0.3 TH/MM3 (0-0.4); EOSINOPHIL % 4.9 % (0.0-4.0); HEMATOCRIT 36.5 % (35.0-46.0); HEMO FLAGS DIFF FINAL; LYMPH % 10.5 % (9.0-44.0); LYMPHOCYTE # 0.6 TH/MM3 (1.0-4.8); MEAN CELL VOLUME 85.3 FL (80.0-100.0); MEAN CORPUSCULAR HGB CONC 32.8 % (32.0-36.0); MONO % 8.8 % (0.0-8.0); NEUT % 75.4 % (16.0-70.0); PLATELET COUNT 178 TH/MM3 (150-450); RED BLOOD COUNT 4.28 MIL/MM3 (4.00-5.30); RED CELL DISTRIBUTION WIDTH 17.4 % (11.6-17.2); WHITE BLOOD COUNT 5.6 TH/MM3 (4.0-11.0)
[2017-05-29 12:53] LABS: INTERNATIONAL NORMALIZED RATIO 2.3 RATIO; PROTHROMBIN TIME - PATIENT 26.1 SEC (9.8-11.6)
[2017-05-29 13:02] LABS: ALT (GPT) 16 U/L (10-53); ANION GAP 6 MEQ/L (5-15); AST (GOT) 13 U/L (15-37); BICARBONATE 31.6 MEQ/L (21.0-32.0); BLOOD UREA NITROGEN 15 MG/DL (7-18); CHLORIDE 96 MEQ/L (98-107); GLOMERULAR FILTRATION RATE 35 ML/MIN (>89); POTASSIUM 4.2 MEQ/L (3.5-5.1); SODIUM (NA) 134 MEQ/L (136-145)
[2017-05-29 13:05] LABS: ALKALINE PHOSPHATASE 69 U/L (45-117); TOTAL BILIRUBIN ADULT 1.2 MG/DL (0.2-1.0)
--- NOTE | 2017-05-29 13:42 | EKG ---
Date Performed: 05/28/2017 Time Performed: 20:06:55 PTAGE: 86 years EKG: ATRIAL FIBRILLATION WITH RAPID VENTRICULAR RESPONSE WITH ABERRANT CONDUCTION OR VENTRICULAR PREMATURE COMPLEXES MINIMAL ST DEPRESSION ABNORMAL RHYTHM ECG PREVIOUS TRACING : 11/25/2015 20.55 Since previous tracing, no significant change. DOCTOR: Anthony Rooney Interpretating Date/Time 05/29/2017 13:41:28
[2017-05-29] MEDS ORDERED: ATORVASTATIN 20 MG TAB PO SCH (21:00)
[2017-05-30] VITALS (7 sets, daily range): BP systolic 115–132; BP diastolic 63–82; PULSE 55–78; RESP 18–20; TEMP 96.3–98.1; O2SAT 94–99
--- NOTE | 2017-05-30 08:18 | MB ---
cc: PRIMITIVO GRIFFITH MD DATE OF CONSULTATION: 05/30/2017 REASON FOR CONSULTATION Chest pain. HISTORY OF PRESENT ILLNESS Ms. Lynch is a 86-year-old female he does have a history of hypertension and atrial fibrillation. She presented to the emergency room with complaints of chest pain. She reports that this had been going on intermittently throughout the day. There did not appear to be any precipitating or relieving factors and there was no correlation to her elevated heart rate episodes. The patient reports that she has had some episodes of racing heart with just minor activities such as folding laundry. She said as well that this had been going on for about a day. PAST MEDICAL HISTORY 1. Hypertension. 2. Hyperlipidemia. 3. Rheumatoid arthritis. 4. Atrial fibrillation. ALLERGIES HALDOL, PERIDOL, MORPHINE. MEDICATIONS Current medications include: 1. Coumadin. 2. Colace. 3. Atorvastatin 20 mg q.h.s. 4. Atenolol 50 mg daily. 5. Diltiazem 120 mg a day. FAMILY HISTORY Negative for CAD. SOCIAL HISTORY The patient does not drink or smoke. REVIEW OF SYSTEMS Except as mentioned in the HPI, all 12 systems are negative. PHYSICAL EXAMINATION VITAL SIGNS: Her initial vital signs showed a heart rate of 120 and blood pressure of 212/98. Current vital signs show heart rate of 89, respiratory rate of 18 and a blood pressure of 133/89. GENERAL: She an overweight female who is in no apparent distress. NECK: Her neck is free from JVD. LUNGS: The lungs are bilaterally clear to auscultation. CARDIOVASCULAR: She has a normal S1 and S2. I did not appreciate any murmurs, rubs or gallops. ABDOMEN: Soft. EXTREMITIES: Extremities are free from edema. LABORATORY EVALUATION Initial sodium of 130 and creatinine of 1.3. Her creatinine today is 1.4. Serial troponins are less than 0.02 and a BNP is 185. IMAGING STUDIES Chest x-ray was negative for any acute process. IMPRESSION Chest pain - the patient has ruled out for OR. She has atypical symptoms and came in with uncontrolled hypertension. This is the most likely etiology. At this point I would like to increase her Diltiazem to 180 as this would help both the blood pressure and the atrial fibrillation. Atrial fibrillation - the patient does have a history of the same. She does report compliance with her medications. At this point she does seem well-controlled on her present meds. Nonetheless, we will try and optimize as above. Hypertension - as above. Disposition - if her stress test is unremarkable it is reasonable for her to be discharged home later. Tadeo Pantoja/TLL /7:42 AM /7:56 AM
--- NOTE | 2017-05-30 08:29 | HHI.PR ---
Subjective Remarks Follow up chest pain, a-fib. Patient has no complaints at this time. Denies chest pain, dyspnea. Wants to go home. Objective Vitals Vital Signs Date Time Temp Pulse Resp B/P (MAP) Pulse Ox O2 Delivery O2 Flow Rate FiO2 05/30/17 04:37 98.1 71 18 123/79 (94) 98 05/30/17 03:50 61 05/30/17 00:50 55 05/30/17 00:16 97.8 78 18 115/63 (80) 98 05/29/17 21:50 60 18 126/78 (94) 99 05/29/17 21:30 54 05/29/17 20:40 98.1 67 18 149/67 (94) 100 05/29/17 16:45 98.5 64 17 133/75 (94) 99 05/29/17 12:07 22 05/29/17 11:26 97.6 76 18 156/78 (104) 97 05/29/17 10:13 68 05/29/17 09:35 109 05/29/17 08:47 98.1 107 17 136/67 (90) 97 I/O 05/29/17 05/29/17 05/29/17 05/30/17 05/30/17 05/30/17 07:00 15:00 23:00 07:00 15:00 23:00 Output Total 900 ml Balance -900 ml Output Urine Total 900 ml Result Diagram: 05/29/17 1159 05/29/17 1159 Imaging Last Impressions Chest X-Ray 05/28/172017 Signed Impressions: Service Date/Time: Sunday, May 28, 2017 20:32 - CONCLUSION: No acute disease. Jordan Jarrett MD Objective Remarks General: Elderly female in no acute distress. Heart: Regular rate and rhythm. No murmur. Lungs: Clear to auscultation bilaterally. No wheezes, rales, or rhonchi. Breathing is nonlabored. Abdomen: Soft, nontender, nondistended. Extremities: No lower extremity edema. Psych: Alert and oriented. Procedures None Urinary Catheter: No Vascular Central Line Catheter: No A/P Problem List: (1) Chest pain ICD Code: R07.9 - Chest pain, unspecified Status: Acute (2) A-fib ICD Code: I48.91 - Unspecified atrial fibrillation (3) Renal insufficiency ICD Code: N28.9 - Disorder of kidney and ureter, unspecified Assessment and Plan 1. Chest pain: Resolved. Serial cardiac enzymes are negative. Appreciate cardiology recommendations. Nuclear stress test ordered. 2. Atrial fibrillation: Chronic. Rate controlled following one dose of IV Cardizem. Continue Coumadin. 3. Acute on chronic renal insufficiency: Creatinine elevated above baseline. Monitor labs. 4. DVT prophylaxis: Coumadin. INR is therapeutic. Discharge Planning Plan for discharge home today if stress test is negative. Zion Smith MD May 30, 2017 08:29
[2017-05-30] MEDS: SODIUM CHLORIDE 0.9% FLUSH 10 ML FLUSH IV FLUSH SCH (09:00)
[2017-05-30] MEDS ORDERED: DILTIAZEM-CD 180 MG CAP ER PO SCH (09:00)
[2017-05-30] MEDS ORDERED: REGADENOSON INJ 0.4 MG/5 ML SYR ONE (10:11)
--- NOTE | 2017-05-30 12:14 | RADRPT ---
EXAM DATE/TIME: 05/30/2017 08:57 [facility] COMPARISON: No previous studies available for comparison. INDICATIONS : Chest pain for 1 day. Angina. Atrial fibrillation. DOSE: 27.2 mCi Tc99m Myoview at stress. 8.3 mCi Tc99m Myoview at rest. 0.4 mg Lexiscan STRESS SYMPTOMS: Chest pain, shortness of breath. EJECTION FRACTION: > 70% MEDICAL HISTORY : Hypertension. Hypercholesterolemia. SURGICAL HISTORY : Tubal ligation. Hysterectomy. Right knee surgery. ENCOUNTER: Initial ACUITY: 1 day PAIN SCALE: 2/10 LOCATION: Bilateral chest TECHNIQUE: The patient underwent pharmacologic stress with infusion of prescribed dose. Continuous ECG tracing was monitored during stress. Gated SPECT imaging was performed after stress and conventional SPECT i maging was performed at rest. The examination was performed on a SPECT/CT scanner, both attenuation and non-corrected datasets were reviewed. FINDINGS: DISTRIBUTION: The maximum perfused segment at stress is in the anterolateral wall. PERFUSION STUDY: The pattern of perfusion at stress is within normal limits. GATED STUDY: There is intact wall motion and thickening without hypokinetic or dyskinetic segments. CONCLUSION: 1. No reversible perfusion defect to indicate stress induced myocardial ischemia identified. RISK CATEGORY: Low (<1% Annual Mortality Rate) Eren Britt MD on May 30, 2017 at 12:12 Board Certified Radiologist. This report was verified electronically.
[2017-05-30] MEDS: ATENOLOL 50 MG TAB PO SCH (12:48)
[2017-05-30] MEDS: DOCUSATE SODIUM 50 MG/SENNA 8.6 MG TAB PO SCH (12:53)
[2017-05-30] MEDS ORDERED: CARD180C5 PO (13:48)
--- NOTE | 2017-05-30 13:49 | HHI.DCPOC ---
Discharge Care Plan Diagnosis: (1) Renal insufficiency (2) Chest pain (3) Hyperlipidemia (4) Hypertension (5) Atrial fibrillation, chronic Goals to Promote Your Health * To prevent worsening of your condition and complications * To maintain your health at the optimal level Directions to Meet Your Goals Take your medications as prescribed Follow your dietary instruction Follow activity as directed Keep your appointments as scheduled Take your immunizations and boosters as scheduled If your symptoms worsen call your PCP, if no PCP go to Urgent Care Center or Emergency Room Smoking is Dangerous to Your Health. Avoid second hand smoke Call the 24-hour hour crisis hotline for domestic abuse at Zion Smith MD May 30, 2017 13:49
== END 2017-05-30 14:49 | disposition home or self-care (01) ==
LOC: NEPC 19:51 → NEDA 22:32 → NEPGCP 05-29 00:58
PROVIDERS: ADMIT Family Medicine; ATTEND Family Medicine
DX: R07.89 Other chest pain (principal); I48.2 Chronic atrial fibrillation; I13.0 Hypertensive heart and chronic kidney disease with heart failure and stage 1 through stage 4 chronic kidney disease, or unspecified chronic kidney disease; N18.9 Chronic kidney disease, unspecified; E78.5 Hyperlipidemia, unspecified; M06.9 Rheumatoid arthritis, unspecified; Z79.01 Long term (current) use of anticoagulants; Z96.651 Presence of right artificial knee joint
CPT/HCPCS: 71010; 78452; 80053; 83735; 83880; 84484; 85025; 85610; 85730; 93005; 93017; 96374; 96375; 99285; A9502; G0378; J1940; J2785